=== PATIENT | female | born 1965 | race Hispanic/Latino ===

== ENCOUNTER 2017-05-25 14:26 | Emergency (ER) | payer SELFPAY ==
[2017-05-25] MEDS ORDERED: OXYMETAZOLINE HCL SPRAY 15 ML BOTTLE ONE (15:04)
== END 2017-05-25 15:08 | disposition home or self-care (01) ==
LOC: EDH 14:26
DX: R04.0 Epistaxis (principal); Z98.890 Other specified postprocedural states; Z88.8 Allergy status to other drugs, medicaments and biological substances

== ENCOUNTER 2021-04-08 21:16 | Emergency (ER) | payer OTHER ==
[~2021-04-08] VITALS: Ht 162.6 cm; Wt 87.1 kg
[2021-04-08] MEDS ORDERED: HYDROCODONE/ACETAMINOPHEN 10/325 MG TAB PO ONE (22:00)
[2021-04-08] MEDS ORDERED: LIDOCAINE 5% TOPICAL PATCH TP ONE (22:00)
[2021-04-08] MEDS ORDERED: KETOROLAC 30MG VIAL (30MG/ML) IM ONE (22:00)
[2021-04-08] MEDS ORDERED: DIAZEPAM 5 MG TABLET PO ONE (22:00)
[2021-04-08 22:19] LABS: BASOPHILS % (AUTO) 0.4 % (0.0-5.0); EOSINOPHILS % (AUTO) 0.4 % (0.0-8.0); HEMATOCRIT 44.8 % (36-48); LYMPHOCYTES % (AUTO) 50.7 % (21.0-51.0); MEAN CORPUSCULAR HEMOGLOBIN 28.2 pg (27.0-33.0); MEAN CORPUSCULAR HGB CONC 31.9 g/dL (32.0-36.0); MEAN CORPUSCULAR VOLUME 88.4 fL (79-99); MONOCYTES % (AUTO) 12.4 % (3.0-13.0); NEUTROPHILS % (AUTO) 36.1 % (40.0-77.0); PLATELET COUNT (AUTO) 224 K/uL (130-400); RED BLOOD CELL COUNT(AUTO) 5.07 MIL/uL (4.00-5.50); RED CELL DISTRIBUTION WIDTH 12.8 % (11.0-15.5); WHITE BLOOD COUNT (AUTO) 4.6 K/uL (4.8-10.8)
[2021-04-08 22:30] LABS: CREATININE 0.7 mg/dL (0.5-1.5); POTASSIUM 3.5 mmol/L (3.5-5.1)
[2021-04-08 22:34] LABS: ALBUMIN 3.9 g/dL (3.5-5.0); BILIRUBIN,TOTAL 0.9 mg/dL (0.2-1.0); CRP QUANTITATIVE 17.4 mg/L (0.00-9.0); TOTAL PROTEIN, SERUM 7.8 g/dL (6.0-8.3)
[2021-04-08] MEDS ORDERED: DIAZ5TAB PO (22:57)
[2021-04-08] MEDS ORDERED: TRAM1TAB PO (22:57)
[2021-04-08 23:05] VITALS: BP 132/79
== END 2021-04-08 23:18 | disposition home or self-care (01) ==
LOC: EDH 21:16
DX: S46.811A Strain of other muscles, fascia and tendons at shoulder and upper arm level, right arm, initial encounter (principal); Z79.899 Other long term (current) drug therapy; X58.XXXA Exposure to other specified factors, initial encounter; Y93.89 Activity, other specified; Y92.89 Other specified places as the place of occurrence of the external cause; Y99.8 Other external cause status
CPT/HCPCS: 36415; 72070; 73010; 80053; 83690; 84484; 85025; 86140; 93005; 96372; 99285; J1885

== ENCOUNTER 2022-01-16 08:10 | Emergency (ER) | payer OTHER ==
[~2022-01-16] VITALS: Ht 170.2 cm; Wt 89.8 kg
[~2022-01-16 08:10] MED LIST: DIAZ5TAB PO; TRAM1TAB2 PO
[2022-01-16] MEDS ORDERED: GUAIFENESIN-DM 200/20 MG 10 ML PO ONE (09:00)
[2022-01-16] MEDS ORDERED: ACETAMINOPHEN 500 MG TABLET PO ONE (09:00)
[2022-01-16] MEDS ORDERED: IBUPROFEN 600 MG TABLET PO ONE (09:00)
[2022-01-16] MEDS ORDERED: OSEL75 PO (10:03)
[2022-01-16] MEDS ORDERED: IBUP-2070 PO (10:03)
[2022-01-16] MEDS ORDERED: D-ME118S47 PO (10:03)
[2022-01-16 10:11] VITALS: BP 135/82
== END 2022-01-16 10:12 | disposition home or self-care (01) ==
LOC: EDH 08:10
DX: J10.1 Influenza due to other identified influenza virus with other respiratory manifestations (principal); Z20.822 Contact with and (suspected) exposure to COVID-19; F41.9 Anxiety disorder, unspecified; Z79.1 Long term (current) use of non-steroidal anti-inflammatories (NSAID)
CPT/HCPCS: 99284; 87635; 87804 ×2; C9803

== ENCOUNTER 2022-04-30 14:07 | Emergency (ER) | payer OTHER ==
[~2022-04-30] VITALS: Ht 167.6 cm; Wt 87.1 kg
[~2022-04-30 14:07] MED LIST changes: +D-ME118S47 PO; +IBUP-2070 PO; +OSEL75 PO
[2022-04-30 17:53] VITALS: BP 115/72
== END 2022-04-30 18:00 | disposition home or self-care (01) ==
LOC: EDH 14:07
DX: U07.1 COVID-19 (principal); Z79.899 Other long term (current) drug therapy
CPT/HCPCS: 99283; 87635; 87804 ×2; C9803

== ENCOUNTER 2023-07-16 22:42 | Emergency (ER) | payer OTHER ==
[~2023-07-16] VITALS: Ht 167.6 cm; Wt 86.2 kg
[~2023-07-16 22:42] MED LIST changes: +BROM118S48 PO; -D-ME118S47 PO
[2023-07-16 23:08] LABS: RAPID GROUP A STREP negative (NEGATIVE)
[2023-07-16 23:15] LABS: SARS-CoV-2, RNA, NAAT NEGATIVE SARS CoV-2 (NEGATIVE)
[2023-07-16 23:20] LABS: INFLUENZA TYPE A NEGATIVE FOR TYPE A (NEG); INFLUENZA TYPE B NEGATIVE FOR TYPE B (NEG)
[2023-07-17 01:01] LABS: APPEARANCE,URINE CLEAR (CLEAR); BILIRUBIN,URINE NEGATIVE (NEGATIVE); COLOR,URINE YELLOW (YELLOW); GLUCOSE, URINE (UA) NEGATIVE (NEGATIVE); KETONES,URINE NEGATIVE (NEGATIVE); LEUKOCYTE ESTERASE ,URINE SMALL Leu/uL (NEGATIVE); NITRATE,URINE NEGATIVE (NEGATIVE); OCCULT BLOOD,URINE NEGATIVE (NEGATIVE); PH,URINE 6.5 (5.0-8.0); PROTEIN,URINE NEGATIVE (NEGATIVE); UROBILINOGEN,URINE 0.2 mg/dL (0.2-1.0)
[2023-07-17 01:02] LABS: ADD UA MICROSCOPIC YES
[2023-07-17 01:11] LABS: BASOPHILS # (AUTO) 0.04 K/uL (0.00-0.20); BASOPHILS % (AUTO) 0.6 % (0.0-5.0); EOSINOPHILS # (AUTO) 0.16 K/uL (0.00-0.70); EOSINOPHILS % (AUTO) 2.4 % (0.0-8.0); HEMATOCRIT 41.5 % (36-48); IMMATURE GRANULOCYTE ABSOLUTE 0.01 K/uL (0-1); LYMPHOCYTES # (AUTO) 2.7 K/uL (1.0-4.8); MEAN CORPUSCULAR HEMOGLOBIN 29.5 pg (27.0-33.0); MEAN CORPUSCULAR HGB CONC 33.3 g/dL (32.0-36.0); MEAN CORPUSCULAR VOLUME 88.7 fL (79-99); MONOCYTES # (AUTO) 0.7 K/uL (0.1-1.0); NEUTROPHILS # (AUTO) 3.1 K/uL (1.8-7.7); NEUTROPHILS % (AUTO) 45.9 % (40.0-77.0); PLATELET COUNT (AUTO) 237 K/uL (130-400); RED BLOOD CELL COUNT(AUTO) 4.68 MIL/uL (4.00-5.50); WHITE BLOOD COUNT (AUTO) 6.7 K/uL (4.8-10.8)
[2023-07-17 01:23] LABS: CREATININE 0.8 mg/dL (0.5-1.0); POTASSIUM 4.1 mmol/L (3.5-5.1)
[2023-07-17 01:28] LABS: ALBUMIN 3.7 g/dL (3.5-5.0); BILIRUBIN,TOTAL 1.2 mg/dL (0.2-1.0); TOTAL PROTEIN, SERUM 7.3 g/dL (6.0-8.3)
[2023-07-17 01:31] LABS: BACTERIA,URINE Few /HPF (None Seen); RBC,URINE 0-1 /HPF (0-1); WBC,URINE 0-1 /HPF (0-1)
[2023-07-17 01:32] LABS: SQUAMOUS EPITHELIAL CELL,UR 0-2 /HPF (0-2)
[2023-07-17] MEDS ORDERED: IBUP-1493 PO (01:42)
[2023-07-17] MEDS ORDERED: ONDA-104 PO (01:42)
[2023-07-17] MEDS ORDERED: GUAI1TBM19 PO (01:43)
[2023-07-17 01:53] VITALS: BP 108/50; PULSE 53; RESP 18; O2SAT 96
[2023-07-17] MEDS: BENZONATATE 100 MG CAPSULE PO STA (02:04)
== END 2023-07-17 02:08 | disposition home or self-care (01) ==
LOC: EDH 22:42
DX: B34.9 Viral infection, unspecified (principal); Z20.822 Contact with and (suspected) exposure to COVID-19
CPT/HCPCS: 36415; 71045; 80053; 81001; 83605; 84484; 85025; 87635; 87804; 87880; 93005